=== PATIENT | female | born 1960 | race Caucasian/White ===

== ENCOUNTER 2016-10-26 19:00 | Emergency (ER) | payer BC ==
[2016-10-26 19:08] VITALS: BMI 29.2
[2016-10-26 19:14] VITALS: RESP 18; TEMP 98.3
[2016-10-26] MEDS ORDERED: Sodium Chloride 0.9% 500 ML IV STA (19:31)
[2016-10-26 20:05] LABS: BASO # 0.03 K/mm3 (0.0-2.0); BASO % 0.6 % (0.0-3.0); EOS # 0.3 (0.0-0.7); EOS % 5.8 % (1.5-5.0); GRAN # 2.82 (1.4-6.5); GRAN % 52.9 % (50.0-68.0); HEMATOCRIT 33.3 % (36.0-48.0); LYMPH # 1.8 (1.2-3.4); LYMPH % 34.5 % (22.0-35.0); MEAN CELL VOLUME 95.7 fl (80.0-105.0); MEAN CORPUSCULAR HEMOGLOBIN 30.7 pg (25.0-35.0); MEAN CORPUSCULAR HGB CONC 32.1 g/dl (31.0-37.0); MEAN PLATELET VOLUME 9.6 fl (7.0-11.0); MONO # 0.3 (0.1-0.6); MONO % 6.2 % (1.0-6.0); RED CELL DISTRIBUTION WIDTH 13.5 % (11.5-14.5); WHITE BLOOD COUNT 5.3 10^3/ul (4.5-11.0)
[2016-10-26 20:10] LABS: ALB/GLOB RATIO 1.3 (1.1-1.8); ALKALINE PHOSPHATASE 59 U/L (38-133); ALT/SGPT 31 U/L (7-56); AST/SGOT 21 U/L (15-39); BILIRUBIN,TOTAL 0.4 mg/dL (0.2-1.3); BLOOD UREA NITROGEN 13 mg/dL (7-21); CALCIUM 9.2 mg/dL (8.4-10.5); CARBON DIOXIDE 26 mmol/L (21-33); CHLORIDE 105 mmol/L (95-110); GFR AFRICAN-AMERICAN > 60; GLUCOSE,RANDOM 115 mg/dL (70-110); POTASSIUM 3.7 mmol/L (3.6-5.0); SODIUM 141 mmol/L (132-148)
[2016-10-26 20:19] LABS: URINE BILIRUBIN NEGATIVE (NEGATIVE); URINE GLUCOSE (UA) NEGATIVE (NEGATIVE); URINE KETONE NEGATIVE (NEGATIVE); URINE PROTEIN NEGATIVE mg/dL (<30 mg/dL); URINE UROBILINOGEN 0.2 E.U./dL (<1 E.U./dL)
[2016-10-26 20:24] LABS: URINE APPEARANCE CLEAR (CLEAR); URINE COLOR YELLOW (YELLOW); URINE LEUKOCYTE ESTERASE NEGATIVE Leu/uL (NEGATIVE)
--- NOTE | 2016-10-26 20:39 | ED PDOC ---
Arrival/HPI - General Chief Complaint: Back Pain Time Seen by Provider: 10/26/16 19:17 Historian: Patient - History of Present Illness Narrative History of Present Illness (Text): 10/26/16 20:36 A 56 year old female, whose past medical history includes arthritis and kidney stones, presents to the emergency department complaining of right sided flank pain, which began 1 week ago. The patient denies any fever, headaches, chills, nausea, dysuria, hearing changes, vision changes, neck pain, cough, chest pain, shortness of breath, or any other complaints at this time. Time/Duration: 1 week Symptom Course: Unchanged Activities at Onset: Light Context: Home Past Medical History - Provider Review Nursing Documentation Reviewed: Yes - Infectious Disease Hx of Infectious Diseases: None - Reproductive Menopause: Yes - Cardiac Hx Pacemaker: No - Pulmonary Hx Respiratory Disorders: No - Neurological Hx Paralysis: No - HEENT Hx HEENT Disorder: Yes Hx Cataracts: Yes (L eye with surgery 06/28/15) - Renal Hx Renal Disorder: No Hx Kidney Stones: Yes - Endocrine/Metabolic Hx Endocrine Disorders: No - Hematological/Oncological Hx Blood Transfusions: No - Integumentary Hx Dermatological Disorder: No - Musculoskeletal/Rheumatological Hx Musculoskeletal Disorders: No Hx Arthritis: Yes - Gastrointestinal Hx Gastrointestinal Disorders: No - Psychiatric Hx Psychophysiologic Disorder: No Hx Substance Use: No - Surgical History Hx Cataract Extraction: Yes (left eye) Hx Section: Yes (x3) - Anesthesia Hx Anesthesia Reactions: No Hx Malignant Hyperthermia: No - Suicidal Assessment Feels Threatened In Home Enviroment: No Family/Social History - Physician Review Nursing Documentation Reviewed: Yes Family/Social History: No Known Family HX Smoking Status: Never Smoked Hx Alcohol Use: No Hx Substance Use: No Hx Substance Use Treatment: No Allergies/Home Meds Allergies/Adverse Reactions: Allergies plum Allergy (Verified 07/03/15 02:34) ITCHING cantaloupe Allergy (Uncoded 07/03/15 02:34) ITCHING peach Allergy (Uncoded 07/03/15 02:32) ITCHING Home Medications: Home Meds Medication Instructions Recorded Confirmed Folic Acid 1 mg PO DAILY 07/07/15 10/26/16 Methotrexate Sodium [Trexall] 7.5 mg PO QD7 07/07/15 10/26/16 Naproxen [Naprosyn] 500 mg PO BID PRN 10/26/16 10/26/16 Review of Systems - Physician Review All systems were reviewed & negative as marked: Yes - Review of Systems Constitutional: absent: Fevers, Other (chills) Eyes: absent: Vision Changes ENT: absent: Hearing Changes Respiratory: absent: SOB, Cough Cardiovascular: absent: Chest Pain Gastrointestinal: absent: Nausea Genitourinary Female: absent: Dysuria Musculoskeletal: absent: Neck Pain Neurological: absent: Headache Physical Exam Vital Signs Reviewed: Yes Vital Signs Temp Pulse Resp BP Pulse Ox 10/26/16 23:01 84 18 118/76 99 10/26/16 19:01 98.3 F 74 18 107/73 98 Temperature: Afebrile Blood Pressure: Normal Pulse: Regular Respiratory Rate: Normal Appearance: Positive for: Well-Appearing, Non-Toxic, Comfortable Pain Distress: None Mental Status: Positive for: Alert and Oriented X 3 - Systems Exam Head: Present: Atraumatic, Normocephalic Pupils: Present: PERRL Extroacular Muscles: Present: EOMI Conjunctiva: Present: Normal Mouth: Present: Moist Mucous Membranes Neck: Present: Normal Range of Motion Respiratory/Chest: Present: Clear to Auscultation, Good Air Exchange. No: Respiratory Distress, Accessory Muscle Use Cardiovascular: Present: Regular Rate and Rhythm, Normal S1, S2. No: Murmurs Abdomen: Present: Normal Bowel Sounds. No: Tenderness, Distention, Peritoneal Signs Back: Present: Normal Inspection Upper Extremity: Present: Normal Inspection. No: Cyanosis, Edema Lower Extremity: Present: Normal Inspection. No: Edema Neurological: Present: GCS=15 Skin: Present: Warm, Dry, Normal Color. No: Rashes Psychiatric: Present: Alert, Oriented x 3, Normal Insight, Normal Concentration Medical Decision Making ED Course and Treatment: 10/26/16 20:40 Impression: A 56 year old female with right sided flank pain. Plan: -- CT Abdomen and Pelvis -- IV Fluids, Toradol -- Labs -- Reassess and disposition Prior Visits: Notes and results from previous visits were reviewed. The patient was last seen in the emergency department on 07/02/15 for chest pain. The patient was hospitalized. Progress Notes: 10/26/16 21:10 Reviewed radiology, CT Abdomen and Pelvis shows: 1. Nonobstructing renal calculus. 2. Possible adnexal lesion. Suggest ultrasound. 3. Pulmonary nodule. For low-risk patients, no follow-up is necessary. For high- risk patients (smoking history or other known risk factors) an optional CT at 12 months could be performed. 4. Incidental/non-acute findings are described above. 10/26/16 23:00 Reviewed sono, US Renal shows: Right kidney: Normal echogenicity. No calculi. No hydronephrosis. Left kidney: Normal echogenicity. No calculi. Small calculus on CT not visualized on current examination. No hydronephrosis. IMPRESSION: 1. No acute findings. 2. Non-acute findings are described above. 10/26/16 23:10 On reevaluation the patient feels better and is in no acute distress. I have discussed the results and plan with the patient, who expresses understanding. Patient given the opportunity to ask question, all questions were answered and there is agreement with the plan to discharge the patient home. Patient is stable for discharge. Patient was instructed to follow up with physician/clinic in 1-2 days or return if symptoms persist/worsen or new concerning symptoms arise. - Lab Interpretations Lab Results: 10/26/16 19:50 10/26/16 19:50 Lab Results 10/26/16 19:50: Sodium 141, Potassium 3.7, Chloride 105, Carbon Dioxide 26, Anion Gap 14, BUN 13, Creatinine 0.8, Est GFR ( Amer) > 60, Est GFR (Non- Af Amer) > 60, Random Glucose 115 H, Calcium 9.2, Total Bilirubin 0.4, AST 21, ALT 31, Alkaline Phosphatase 59, Total Protein 7.0, Albumin 3.9, Globulin 3.1, Albumin/Globulin Ratio 1.3 10/26/16 19:50: Urine Color Yellow, Urine Appearance Clear, Urine pH 6.0, Ur Specific [place] 1.010, Urine Protein Negative, Urine Glucose (UA) Negative, Urine Ketones Negative, Urine Blood Small H, Urine Nitrate Negative, Urine Bilirubin Negative, Urine Urobilinogen 0.2, Ur Leukocyte Esterase Negative, Urine RBC 1 - 3, Urine WBC 1 - 3, Ur Epithelial Cells 1 - 3 10/26/16 19:50: WBC 5.3, RBC 3.48 L, Hgb 10.7 L, Hct 33.3 L, MCV 95.7, MCH 30.7 , MCHC 32.1, RDW 13.5, Plt Count 220, MPV 9.6, Gran % 52.9, Lymph % (Auto) 34.5 , [place] % (Auto) 6.2 H, Eos % (Auto) 5.8 H, Baso % (Auto) 0.6, Gran # 2.82, Lymph # 1.8, [place] # 0.3, Eos # 0.3, Baso # 0.03 I have reviewed the lab results: Yes - RAD Interpretation Narrative RAD Interpretations (Text): CT Abdomen and Pelvis shows: Lower thorax: Tiny cyst or bulla LEFT lower lobe. Minimal atelectasis/scarring. 0.3 cm subpleural nodule vs focal scarring RIGHT middle lobe. ABDOMEN: Liver: Fatty infiltration. Gallbladder and bile ducts: No calcified stones. No ductal dilation. Pancreas: Unremarkable. No ductal dilation. Spleen: No splenomegaly. Adrenals: No mass. Kidneys and ureters: Small calculus within LEFT kidney. No hydronephrosis. Stomach and bowel: No definite mural thickening. No obstruction. Appendix: Normal caliber. No inflammation. PELVIS: Bladder: Unremarkable. No stones. Reproductive: Apparent 1.4 x 1.3 x 0.9 cm hypodense lesion LEFT adnexal region. ABDOMEN and PELVIS: Intraperitoneal space: No significant fluid collection. No free air. Bones/joints: No acute fracture. Soft tissues: Unremarkable. Vasculature: Rounded calcification within RIGHT hemipelvis, likely phlebolith. No aneurysm. Lymph nodes: No pathologically enlarged lymph nodes. IMPRESSION: 1. Nonobstructing renal calculus. 2. Possible adnexal lesion. Suggest ultrasound. 3. Pulmonary nodule. For low-risk patients, no follow-up is necessary. For high- risk patients (smoking history or other known risk factors) an optional CT at 12 months could be performed. 4. Incidental/non-acute findings are described above. Radiology Orders: 10/26/16 19:31 ABD & PELVIS W/O PO OR IV CONT [CT] Stat 10/26/16 21:57 RENAL [US] Stat English Language Arts Teacher: Radiologist - Medication Orders Current Medication Orders: Discontinued Medications Sodium Chloride (Sodium Chloride 0.9%) 500 mls @ 1,000 mls/hr IV .Q30M STA Stop: 10/26/16 20:00 Last Admin: 10/26/16 19:51 Dose: 1,000 mls/hr Ketorolac Tromethamine (Toradol) 30 mg IVP STAT STA Stop: 10/26/16 19:32 Last Admin: 10/26/16 19:49 Dose: 30 mg - Scribe Statement The provider has reviewed the documentation as recorded by the Ervinibe Ting Wiggins Provider Scribe Attestation: All medical record entries made by the Scribe were at my direction and personally dictated by me. I have reviewed the chart and agree that the record accurately reflects my personal performance of the history, physical exam, medical decision making, and the department course for this patient. I have also personally directed, reviewed, and agree with the discharge instructions and disposition. Disposition/Present on Arrival - Present on Arrival Any Indicators Present on Arrival: No History of DVT/PE: No History of Uncontrolled Diabetes: No Urinary Catheter: No History of Decub. Ulcer: No History Surgical Site Infection Following: None - Disposition Have Diagnosis and Disposition been Completed?: Yes Diagnosis: Flank pain Disposition: HOME/ ROUTINE Disposition Time: 23:11 Condition: GOOD Discharge Instructions (ExitCare): Flank Pain (ED) Referrals: Mauricio Costa MD [Staff Provider] - Follow up with primary Cely Chase MD [Primary Care Provider] - Follow up with primary Loki Vargas MD [Staff Provider] - Follow up with primary Forms: [employer] (Welsh)
[2016-10-26 21:01] LABS: URINE BLOOD SMALL (NEGATIVE)
--- NOTE | 2016-10-26 21:09 | CT ---
EXAM: CT Abdomen and Pelvis Without Intravenous Contrast CLINICAL HISTORY: 56 years old, female; Pain; Abdominal pain; Flank; Right; Prior surgery; Surgery type: (3) c-sections; Additional info: Rt flank pain TECHNIQUE: Axial computed tomography images of the abdomen and pelvis without intravenous contrast. All CT scans at this facility use one or more dose reduction techniques, viz.: automated exposure control; ma/kV adjustment per patient size (including targeted exams where dose is matched to indication; i.e. head); or iterative reconstruction technique. Coronal and sagittal reformatted images were created and reviewed. COMPARISON: No relevant prior studies available. FINDINGS: Lower thorax: Tiny cyst or bulla LEFT lower lobe. Minimal atelectasis/scarring. 0.3 cm subpleural nodule vs focal scarring RIGHT middle lobe. ABDOMEN: Liver: Fatty infiltration. Gallbladder and bile ducts: No calcified stones. No ductal dilation. Pancreas: Unremarkable. No ductal dilation. Spleen: No splenomegaly. Adrenals: No mass. Kidneys and ureters: Small calculus within LEFT kidney. No hydronephrosis. Stomach and bowel: No definite mural thickening. No obstruction. Appendix: Normal caliber. No inflammation. PELVIS: Bladder: Unremarkable. No stones. Reproductive: Apparent 1.4 x 1.3 x 0.9 cm hypodense lesion LEFT adnexal region. ABDOMEN and PELVIS: Intraperitoneal space: No significant fluid collection. No free air. Bones/joints: No acute fracture. Soft tissues: Unremarkable. Vasculature: Rounded calcification within RIGHT hemipelvis, likely phlebolith. No aneurysm. Lymph nodes: No pathologically enlarged lymph nodes. IMPRESSION: 1. Nonobstructing renal calculus. 2. Possible adnexal lesion. Suggest ultrasound. 3. Pulmonary nodule. For low-risk patients, no follow-up is necessary. For high-risk patients (smoking history or other known risk factors) an optional CT at 12 months could be performed. 4. Incidental/non-acute findings are described above.
--- NOTE | 2016-10-26 22:44 | US ---
EXAM: US Retroperitoneal Limited, Renal CLINICAL HISTORY: 56 years old, female; Pain; Other: Rt flank pain; Additional info: Left adrenal mass TECHNIQUE: Real-time ultrasound of the retroperitoneum (limited) with image documentation. COMPARISON: CT - ABD PELVIS W/O PO OR IV CONT 10/26/2016 7:52:31 PM FINDINGS: Right kidney: Normal echogenicity. No calculi. Small calculus on CT not visualized on current examination. No hydronephrosis. Left kidney: Normal echogenicity. No calculi. No hydronephrosis. IMPRESSION: 1.No acute findings. 2.Non-acute findings are described above.
[2016-10-26 23:14] VITALS: BP 118/76; PULSE 84; O2SAT 99
== END 2016-10-26 23:13 | disposition home or self-care (01) ==
LOC: ED 19:00
DX: R10.9 Unspecified abdominal pain (principal)
CPT/HCPCS: 74176; 76770; 80053; 81001; 85025; 87086; 96374; 99283; J1885; J7040

== ENCOUNTER 2016-11-28 01:43 | Emergency (ER) | payer BC ==
[2016-11-28 01:59] VITALS: BMI 30.7
[2016-11-28 02:06] VITALS: BP 142/90; PULSE 60; RESP 12; O2SAT 100
--- NOTE | 2016-11-28 02:36 | ED PDOC ---
Arrival/HPI - General Historian: Patient, Family - History of Present Illness Time/Duration: Prior to Arrival Symptom Onset: Sudden Symptom Course: Improving Quality: Pressure Severity Level: 7 Activities at Onset: Light Context: Walking <Ana Rosa Law - Last Filed: 11/28/16 02:58> <DeidreDong - Last Filed: 11/28/16 03:22> - General Chief Complaint: Shortness Of Breath Time Seen by Provider: 11/28/16 02:16 - History of Present Illness Narrative History of Present Illness (Text): 11/28/16 02:32 This is a 56Y F with PMH of kidney stones and rheumatoid arthritis who came to emergency department for chest pain prior to arrival. She reports she was walking to her car, which was less than a block away and had chest tightness that radiated to her back. She also felt shortness of breath before. She had to rest in the car and the pain improved. Patient reports this has happened before and is worse when she walks up hill. She had a stress test 1 yr ago which was negative. Patient states she does not want to be admitted to the hospital. She denies vision changes, n/v/d, numbness/tingling, fever, chills, or slurred speech. (Ana Rosa Law) Past Medical History - Provider Review Nursing Documentation Reviewed: Yes - Travel History Have you recently traveled outside [place] w/in the past 3 mons?: No - Infectious Disease Hx of Infectious Diseases: None - Cardiac Hx Pacemaker: No - Pulmonary Hx Respiratory Disorders: No - Neurological Hx Paralysis: No - HEENT Hx HEENT Disorder: Yes Hx Cataracts: Yes (L eye with surgery 06/28/15) - Renal Hx Renal Disorder: No Hx Kidney Stones: Yes - Endocrine/Metabolic Hx Endocrine Disorders: No - Hematological/Oncological Hx Blood Transfusions: No - Integumentary Hx Dermatological Disorder: No - Musculoskeletal/Rheumatological Hx Musculoskeletal Disorders: No Hx Arthritis: Yes Hx Rheumatoid Arthritis: Yes - Gastrointestinal Hx Gastrointestinal Disorders: No - Psychiatric Hx Psychophysiologic Disorder: No Hx Substance Use: No - Surgical History Hx Cataract Extraction: Yes (left eye) Hx Section: Yes (x3) - Anesthesia Hx Anesthesia Reactions: No Hx Malignant Hyperthermia: No - Suicidal Assessment Feels Threatened In Home Enviroment: No <Ana Rosa Law - Last Filed: 11/28/16 02:58> Family/Social History - Physician Review Nursing Documentation Reviewed: Yes Family/Social History: Unknown Family HX Smoking Status: Never Smoked Hx Alcohol Use: No Hx Substance Use: No Hx Substance Use Treatment: No <Ana Rosa Law - Last Filed: 11/28/16 02:58> Allergies/Home Meds <Travis Lawystal - Last Filed: 11/28/16 02:58> <Dong Jiang - Last Filed: 11/28/16 03:22> Allergies/Adverse Reactions: Allergies plum Allergy (Verified 11/28/16 02:08) ITCHING cantaloupe Allergy (Uncoded 11/28/16 02:08) ITCHING peach Allergy (Uncoded 11/28/16 02:08) ITCHING Home Medications: Home Meds Medication Instructions Recorded Confirmed Folic Acid 1 mg PO DAILY 07/07/15 11/28/16 Methotrexate Sodium [Trexall] 7.5 mg PO QD7 07/07/15 11/28/16 Naproxen [Naprosyn] 500 mg PO BID PRN 10/26/16 11/28/16 Review of Systems - Physician Review All systems were reviewed & negative as marked: Yes - Review of Systems Constitutional: Normal. absent: Fatigue, Fevers Eyes: Normal. absent: Vision Changes ENT: Normal. absent: Hearing Changes Respiratory: SOB. absent: Cough, Sputum, Wheezing Cardiovascular: Chest Pain. absent: Palpitations, Edema Gastrointestinal: Normal. absent: Abdominal Pain, Diarrhea, Nausea, Vomiting Genitourinary Female: Normal. absent: Dysuria, Frequency Musculoskeletal: Normal. absent: Arthralgias, Back Pain, Myalgias Skin: Normal. absent: Rash, Pruritis Neurological: Normal. absent: Headache, Dizziness Endocrine: Normal. absent: Diaphoresis Psychiatric: Normal. absent: Anxiety, Depression <Ana Rosa Law - Last Filed: 11/28/16 02:58> Physical Exam Vital Signs Reviewed: Yes Temperature: Afebrile Blood Pressure: Normal Pulse: Regular Respiratory Rate: Normal Appearance: Positive for: Well-Appearing, Non-Toxic, Comfortable Pain Distress: None Mental Status: Positive for: Alert and Oriented X 3 - Systems Exam Head: Present: Atraumatic, Normocephalic Pupils: Present: PERRL Extroacular Muscles: Present: EOMI Conjunctiva: Present: Normal Mouth: Present: Moist Mucous Membranes Neck: Present: Normal Range of Motion Respiratory/Chest: Present: Clear to Auscultation, Good Air Exchange. No: Respiratory Distress, Accessory Muscle Use Cardiovascular: Present: Regular Rate and Rhythm, Normal S1, S2. No: Murmurs Abdomen: Present: Normal Bowel Sounds. No: Tenderness, Distention, Peritoneal Signs Back: Present: Normal Inspection Upper Extremity: Present: Normal Inspection. No: Cyanosis, Edema Lower Extremity: Present: Normal Inspection. No: Edema Neurological: Present: GCS=15, CN II-XII Intact, Speech Normal Skin: Present: Warm, Dry, Normal Color. No: Rashes Psychiatric: Present: Alert, Oriented x 3, Normal Insight, Normal Concentration <Ana Rosa Law - Last Filed: 11/28/16 02:58> <Dong Jiang - Last Filed: 11/28/16 03:22> Vital Signs Pulse Resp BP Pulse Ox 11/28/16 02:06 60 12 142/90 100 Medical Decision Making Re-evaluation Time: 02:58 <Ana Rosa Law - Last Filed: 11/28/16 02:58> - Lab Interpretations I have reviewed the lab results: Yes - RAD Interpretation Ethanol Operator: ED Physician - EKG Interpretation Interpreted by ED Physician: Yes Type: 12 lead EKG <Dong Jiang - Last Filed: 11/28/16 03:22> ED Course and Treatment: 11/28/16 02:37 Impression: This is a 56Y F with PMH of kidney stones and rheumatoid arthritis who came to emergency department for chest pain prior to arrival. Differential Diagnosis included but are not limited to: Chest pain r/o ACS Plan: -- EKG -- CXR -- CBC, CMP, Cardiac Iso -- Reassess and disposition Progress Notes: This patient is choosing to leave against medical advice. I have personally explained to the patient that choosing to do so may result in permanent bodily harm or . I have discussed at great length that without further evaluation and monitoring there may be unforeseen circumstances and/or deterioration causing permanent bodily harm or as a result of their choice. The patient is alert, oriented, and shows the mental capacity to make clear decisions regarding the patients health care at this time. The patient continues to wish to leave against medical advice. In light of the patients decision to leave AMA, follow-up has been arranged and the patient is aware of the importance of following up as instructed. The patient has been advised that they should return to the ED immediately if they change their mind at any time, or if their condition begins to change or worsen in any way. (Ana Rosa Law) Impression: Pt seen and evaluated with medical research scientist. Pt presented for chest pain and shortness of breath. Aware and agree with HPI, clinical findings, plan, and management. Plan: -- EKG -- CXR -- Labs, cardiac enzymes -- Reassess and disposition 11/28/16 02:50 Discussed results and plan with pt. Pt states she does not wish to stay in the hospital. Patient is choosing to leave against medical advice. I have personally explained to the patient that choosing to do so may result in permanent bodily harm or . The patient is alert, oriented, and shows the mental capacity to make clear decisions regarding the patients health care at this time. The patient continues to wish to leave against medical advice. Patient is aware of the importance of following up as instructed. (Dong Jiang) - Lab Interpretations Lab Results: 11/28/16 02:23 Lab Results 11/28/16 02:23: WBC 6.1, RBC 3.49 L, Hgb 10.8 L, Hct 33.4 L, MCV 95.7, MCH 30.9 , MCHC 32.3, RDW 13.5, Plt Count 224, MPV 9.8, Gran % 49.3 L, Lymph % (Auto) 37.4 H, [place] % (Auto) 6.8 H, Eos % (Auto) 6.0 H, Baso % (Auto) 0.5, Gran # 2.99 , Lymph # 2.3, [place] # 0.4, Eos # 0.4, Baso # 0.03 - RAD Interpretation Radiology Orders: 11/28/16 02:16 CHEST PORTABLE [RAD] Stat - PA / MANUFACTURING FINANCE MANAGER / Resident Statement / has reviewed & agrees with the documentation as recorded. / has examined the patient and agrees with the treatment plan. <Dong Jiang - Last Filed: 11/28/16 03:22> Disposition/Present on Arrival - Present on Arrival Any Indicators Present on Arrival: No History of DVT/PE: No History of Uncontrolled Diabetes: No Urinary Catheter: No History of Decub. Ulcer: No History Surgical Site Infection Following: None - Disposition Have Diagnosis and Disposition been Completed?: Yes Disposition Time: 02:58 Patient Plan: Discharge <Ana Rosa Law - Last Filed: 11/28/16 02:58> <Dong Jiang - Last Filed: 11/28/16 03:22> - Disposition Diagnosis: Chest pain Disposition: AGAINST MEDICAL ADVICE Patient Problems: Current Active Problems Problem Status Onset Chest pain Acute Condition: FAIR Discharge Instructions (ExitCare): Chest Pain (ED) Print Language: MACANESE Forms: [employer] (Kosovan)
[2016-11-28 02:42] LABS: BASO # 0.03 K/mm3 (0.0-2.0); BASO % 0.5 % (0.0-3.0); EOS # 0.4 (0.0-0.7); GRAN # 2.99 (1.4-6.5); GRAN % 49.3 % (50.0-68.0); HEMATOCRIT 33.4 % (36.0-48.0); LYMPH # 2.3 (1.2-3.4); LYMPH % 37.4 % (22.0-35.0); MEAN CELL VOLUME 95.7 fl (80.0-105.0); MEAN CORPUSCULAR HEMOGLOBIN 30.9 pg (25.0-35.0); MEAN CORPUSCULAR HGB CONC 32.3 g/dl (31.0-37.0); MEAN PLATELET VOLUME 9.8 fl (7.0-11.0); MONO # 0.4 (0.1-0.6); MONO % 6.8 % (1.0-6.0); RED CELL DISTRIBUTION WIDTH 13.5 % (11.5-14.5); WHITE BLOOD COUNT 6.1 10^3/ul (4.5-11.0)
[2016-11-28 03:00] LABS: ALB/GLOB RATIO 1.2 (1.1-1.8); ALKALINE PHOSPHATASE 57 U/L (38-126); ALT/SGPT 28 U/L (7-56); AST/SGOT 31 U/L (14-36); BILIRUBIN,TOTAL 0.3 mg/dL (0.2-1.3); BLOOD UREA NITROGEN 16 mg/dL (7-21); CALCIUM 9.3 mg/dL (8.4-10.5); CARBON DIOXIDE 25 mmol/L (21-33); CHLORIDE 105 mmol/L (98-107); GFR AFRICAN-AMERICAN > 60; GLUCOSE,RANDOM 106 mg/dL (70-110); POTASSIUM 3.7 mmol/L (3.6-5.0); SODIUM 141 mmol/L (132-148); TOTAL PROTEIN 7.1 g/dL (5.8-8.3)
[2016-11-28 03:22] LABS: TROPONIN I < 0.01 ng/mL
--- NOTE | 2016-11-28 07:46 | RAD ---
HISTORY: sob COMPARISON: Portable chest 07/02/2015. FINDINGS: LUNGS: No active pulmonary disease. PLEURA: No significant pleural effusion identified, no pneumothorax apparent. CARDIOVASCULAR: Likely technical magnification of the cardiac silhouette with intrinsic cardiomegaly not favored. Clinically correlate. OSSEOUS STRUCTURES: No significant abnormalities. VISUALIZED UPPER ABDOMEN: Normal. OTHER FINDINGS: None. IMPRESSION: No acute infiltrate or pleural effusion bilaterally. Prominent appearing to cardiac silhouette. Please see discussion above.
--- NOTE | 2016-11-28 19:03 | CARD ---
APPROVED REPORT EKG Measurement Heart [id number] <Conclusion> Normal sinus rhythm Normal ECG
== END 2016-11-28 02:50 | disposition left against medical advice (07) ==
LOC: ED 01:43
DX: R07.9 Chest pain, unspecified (principal); M06.9 Rheumatoid arthritis, unspecified